=== PATIENT | male | born 1960 | race African-American/Black ===

== ENCOUNTER 2016-07-19 11:36 | Emergency (ER) | payer BC ==
[2016-07-19 11:45] VITALS: BP 125/90; PULSE 82; TEMP 97.5; BMI 25.7
[2016-07-19] MEDS ORDERED: TOBRAMYCIN 0.3% OPHTH SOLN 5 ML BOTTLE OD ONE (12:41)
[2016-07-19] MEDS ORDERED: TOBRAMYCIN 0.3% OPHTH SOLN 5 ML BOTTLE ONE (12:46)
--- NOTE | 2016-07-19 13:02 | PDOC ---
History of Present Illness - General Chief Complaint: Eye Problem Stated Complaint: RT EYE IRRITATION Time Seen by Provider: 07/19/16 12:21 History Source: Patient Exam Limitations: No Limitations - History of Present Illness Initial Comments: 07/19/16 12:56 55 yr male with one week red itchy eye. Pt denies trauma to the eye. Pt has tearing some discharge in the morning. no vision changes, pt has history of colitis. Past History - Past Medical History Allergies/Adverse Reactions: Allergies Allergy/AdvReac Type Severity Reaction Status Date / Time No Known Allergies Allergy Verified 07/19/16 11:41 Home Medications: Ambulatory Orders NK [No Known Home Medication] 05/13/15 GI Disorders: Yes (COLITIS) Suicide Attempt (Hx): No - Psycho/Social/Smoking Cessation Hx Anxiety: No Suicidal Ideation: No Smoking Status: No Smoking History: Never smoked Have you smoked in the past 12 months: No Number of Cigarettes Smoked Daily: 0 Information on smoking cessation initiated: No Hx Alcohol Use: No Drug/Substance Use Hx: No Substance Use Type: None Review of Systems - Review of Systems Able to Perform ROS?: Yes Is the patient limited Armenian proficient: No Constitutional: No: Symptoms Reported HEENTM: Yes: Symptoms Reported, See HPI Respiratory: No: Symptoms reported Cardiac (ROS): No: Symptoms Reported : No: Symptoms Reported Musculoskeletal: No: Symptoms Reported Integumentary: No: Symptoms Reported Neurological: No: Symptoms reported *Physical Exam - Vital Signs Last Vital Signs Temp Pulse Resp BP Pulse Ox 97.5 F L 82 18 125/90 100 07/19/16 11:42 07/19/16 11:42 07/19/16 11:42 07/19/16 11:42 07/19/16 11:42 - Physical Exam General Appearance: Yes: Nourished, Appropriately Dressed HEENT: positive: EOMI, NIMO, Normal ENT Inspection, Other (right eye reddened inner corner, EOMI , scant dischargeclear light [place] color.) Neck: positive: Supple. negative: Trachea midline Respiratory/Chest: positive: Lungs Clear, Normal Breath Sounds Extremity: positive: Normal Capillary Refill Integumentary: positive: Normal Color, Dry, Warm Neurologic: positive: Fully Oriented, Alert, Normal Mood/Affect, Normal Response , Motor Strength 5/5 ED Treatment Course - Medications Given in the ED: ED Medications Discontinued Medications Generic Name Dose Route Start Last Admin Trade Name Tyson PRN Reason Stop Dose Admin Tobramycin Sulfate 1 drop 07/19/16 12:41 07/19/16 12:44 Tobrex Ophthalmic Solution - OD 07/19/16 12:42 1 drop ONCE ONE Administration Medical Decision Making - Medical Decision Making 07/19/16 12:59 cc: right red eye for 8 days no discharge at present time no vision changes EOMI pt has apt tomorrow with the eye doctor for evaluation will place on tobramycin *DC/Admit/Observation/Transfer Diagnosis at time of Disposition: Eye irritation - Discharge Dispostion Disposition: HOME Condition at time of disposition: Good - Patient Instructions Additional Instructions: use the tobramycin drops as directed , 2 drops every 4hrs to right eye follow up with your eye doctor tomorrow for evaluation
== END 2016-07-19 13:18 | disposition home or self-care (01) ==
LOC: JERFT 11:36
DX: H57.8 Other specified disorders of eye and adnexa (principal)
CPT/HCPCS: 99281-25

== ENCOUNTER 2016-09-09 22:16 | Emergency (ER) | payer BC ==
[2016-09-09 22:26] VITALS: BMI 26.6
--- NOTE | 2016-09-09 22:55 | PDOC ---
History of Present Illness - General Chief Complaint: Ear Problem Stated Complaint: EAR PROBLEM Time Seen by Provider: 09/09/16 22:55 History Source: Patient - History of Present Illness Initial Comments: 09/09/16 23:00 56 year old male c/o ear pain left worse than right. patient reports blowing nose felt pain to ears. + nasal congestion Past History - Past Medical History Allergies/Adverse Reactions: Allergies Allergy/AdvReac Type Severity Reaction Status Date / Time No Known Allergies Allergy Verified 09/09/16 22:20 Home Medications: Ambulatory Orders Amoxicillin - [Amoxicillin 875mg Tablet -] 875 mg PO BID #20 tablet 09/09/16 Folic Acid 1 mg PO DAILY 09/09/16 Ibuprofen 600 mg PO QID PRN #20 tablet 09/09/16 Mesalamine [Lialda] 1.2 gm PO DAILY 09/09/16 Pseudoephedrine HCl 30 mg PO DAILY #3 tablet 09/09/16 GI Disorders: Yes (COLITIS) Suicide Attempt (Hx): No Other medical history: SEASONAL ALLERGIES - Immunization History Immunization Up to Date: Yes - Psycho/Social/Smoking Cessation Hx Anxiety: No Suicidal Ideation: No Smoking Status: No Smoking History: Never smoked Have you smoked in the past 12 months: No Number of Cigarettes Smoked Daily: 0 Information on smoking cessation initiated: No Hx Alcohol Use: No Drug/Substance Use Hx: No Substance Use Type: None Review of Systems - Review of Systems Able to Perform ROS?: Yes Is the patient limited Maldivian proficient: No Constitutional: No: Symptoms Reported, See HPI, Chills, Diaphoresis, Fever, Loss of Appetite, Malaise, Night Sweats, Weakness, Weight Stable, Unintentional Wgt. Loss, Unexplained wgt Loss, Other HEENTM: Yes: Ear Pain. No: Symptoms Reported, See HPI, Eye Pain, Blurred Vision , Tearing, Recent change in vision, Double Vision, Cataracts, Ocular Prothesis, Ear Discharge, Nose Pain, Nose Congestion, Tinnitus, Nose Bleeding, Hearing Loss , Throat Pain, Throat Swelling, Mouth Pain, Dental Problems, Difficulty Swallowing, Mouth Swelling, Other *Physical Exam - Vital Signs Last Vital Signs Temp Pulse Resp BP Pulse Ox 98.3 F 87 16 165/107 96 09/09/16 22:21 09/09/16 22:21 09/09/16 22:21 09/09/16 22:21 09/09/16 22:21 - Physical Exam General Appearance: Yes: Appropriately Dressed HEENT: positive: TM Bulging (erythematous l> r) Respiratory/Chest: positive: Lungs Clear, Normal Breath Sounds Cardiovascular: positive: Regular Rhythm, Regular Rate Gastrointestinal/Abdominal: positive: Normal Bowel Sounds, Soft Extremity: positive: Normal Capillary Refill, Normal Inspection, Normal Range of Motion Medical Decision Making - Medical Decision Making otitis media P: amoxicillin sudafed x 3 days ibuprofen for pain *DC/Admit/Observation/Transfer Diagnosis at time of Disposition: Otitis media Qualifiers: Otitis media type: suppurative Laterality: bilateral Chronicity: acute Recurrence: not specified as recurrent Spontaneous tympanic membrane rupture: without spontaneous rupture Qualified Code(s): H66.003 - Acute suppurative otitis media without spontaneous rupture of ear drum, bilateral - Discharge Dispostion Disposition: HOME - Prescriptions Prescriptions: Amoxicillin - [Amoxicillin 875mg Tablet -] 875 mg PO BID #20 tablet Ibuprofen 600 mg PO QID PRN #20 tablet PRN Reason: Pain Pseudoephedrine HCl 30 mg PO DAILY #3 tablet - Referrals Referrals: Demetrio Sweet MD [Primary Care Provider] - - Patient Instructions Printed Discharge Instructions: DI for Otitis Media (Middle Ear Infection)- Child Additional Instructions: take ibuprofen for pain as prescribed. take amoxicillin as prescribed. follow up with your doctor as soon as possible.
[2016-09-09] MEDS ORDERED: IBUPROFEN 600 MG TABLET (FP) PO ONE ×2 (23:10→23:39)
[2016-09-09] MEDS ORDERED: AMOXICILLIN 500 MG CAPSULE (FP) PO ONE (23:10)
[2016-09-09] MEDS ORDERED: AMOXICILLIN 500 MG CAPSULE (FP) ONE (23:39)
--- NOTE | 2016-09-10 00:03 | PDOC ---
*Physical Exam - Vital Signs Last Vital Signs Temp Pulse Resp BP Pulse Ox 98.3 F 87 16 165/107 96 09/09/16 22:21 09/09/16 22:21 09/09/16 22:21 09/09/16 22:21 09/09/16 22:21 ED Treatment Course - Medications Given in the ED: ED Medications Discontinued Medications Generic Name Dose Route Start Last Admin Trade Name Freq PRN Reason Stop Dose Admin Amoxicillin 500 mg 09/09/16 23:10 09/09/16 23:40 Amoxicillin - PO 09/09/16 23:11 500 mg ONCE ONE Administration Ibuprofen 600 mg 09/09/16 23:10 09/09/16 23:40 Motrin - PO 09/09/16 23:11 600 mg ONCE ONE Administration Medical Decision Making - Medical Decision Making 09/10/16 00:03 agree with care from AI Peralta *DC/Admit/Observation/Transfer Diagnosis at time of Disposition: Otitis media Qualifiers: Otitis media type: suppurative Laterality: bilateral Chronicity: acute Recurrence: not specified as recurrent Spontaneous tympanic membrane rupture: without spontaneous rupture Qualified Code(s): H66.003 - Acute suppurative otitis media without spontaneous rupture of ear drum, bilateral - Discharge Dispostion Disposition: HOME - Prescriptions Prescriptions: Amoxicillin - [Amoxicillin 875mg Tablet -] 875 mg PO BID #20 tablet Ibuprofen 600 mg PO QID PRN #20 tablet PRN Reason: Pain Pseudoephedrine HCl 30 mg PO DAILY #3 tablet - Referrals Referrals: Demetrio Sweet MD [Primary Care Provider] - - Patient Instructions Printed Discharge Instructions: DI for Otitis Media (Middle Ear Infection)- Child Additional Instructions: take ibuprofen for pain as prescribed. take amoxicillin as prescribed. follow up with your doctor as soon as possible. - Post Discharge Activity
[2016-09-10 05:00] VITALS: BP 160/97; PULSE 80; TEMP 98.2
== END 2016-09-10 | disposition home or self-care (01) ==
LOC: JER 22:16
DX: H66.003 Acute suppurative otitis media without spontaneous rupture of ear drum, bilateral (principal)
CPT/HCPCS: 99282-25

== ENCOUNTER 2019-01-27 23:55 | Emergency (ER) | payer BC ==
[2019-01-28 00:53] VITALS: BP 146/99; PULSE 70; TEMP 97.9; BMI 24.6
[2019-01-28] MEDS ORDERED: CLINDAMYCIN HCL 300 MG CAPSULE PO ONE (01:25)
--- NOTE | 2019-01-28 01:26 | PDOC ---
History of Present Illness - General Chief Complaint: Injury Stated Complaint: SLICED OFF RT MIDDLE FINGER TIP Time Seen by Provider: 01/28/19 01:17 - History of Present Illness Initial Comments: Kemar Clayton is a 58yo man who presents to the ED with an injury to the right hand. He was using a food safety coordinator at home and stuck his hand inside. His middle fingertip was struck by the food safety coordinator blade. He states that the wound was bleeding heavily immediately after the injury, and he noticed that the fingertip was missing. He wrapped the wound with gauze and wrapped his finger with wire to help with the bleeding. Mr Clayton does not remember when he last had a tetanus shot. Past History - Past Medical History Allergies/Adverse Reactions: Allergies Allergy/AdvReac Type Severity Reaction Status Date / Time No Known Allergies Allergy Verified 09/09/16 22:20 Home Medications: Ambulatory Orders Amoxicillin - [Amoxicillin 875mg Tablet -] 875 mg PO BID #20 tablet 09/09/16 Folic Acid 1 mg PO DAILY 09/09/16 Ibuprofen 600 mg PO QID PRN #20 tablet 09/09/16 Mesalamine [Lialda] 1.2 gm PO DAILY 09/09/16 Pseudoephedrine HCl 30 mg PO DAILY #3 tablet 09/09/16 Clindamycin [Cleocin -] 300 mg PO Q6HPO #28 capsule 01/28/19 COPD: No GI Disorders: Yes (COLITIS) - Immunization History Immunization Up to Date: Yes - Suicide/Smoking/Psychosocial Hx Smoking Status: No Smoking History: Never smoked Have you smoked in the past 12 months: No Number of Cigarettes Smoked Daily: 0 Information on smoking cessation initiated: Yes Hx Alcohol Use: No Drug/Substance Use Hx: No Substance Use Type: None Review of Systems - Review of Systems Comments:: General: No fevers, no chills, no weight or appetite change, no malaise HEENT: No changes in vision, no changes in hearing, no congestion, no sore throat CV: No chest pain, no palpitations, no LE edema Pulm: No SOB, no cough, no wheezing GI: No nausea or vomiting, no change in bowel habits, no melena : No frequency, no urgency, no dysuria Musc: See HPI Skin: No rash, no lesions, no erythema Endo: No excessive thirst, no heat/cold intolerance Heme: No unusual bruising or bleeding, no swollen glands Neuro: No syncope, no numbness/tingling, no focal weakness Vasc: No claudication Psych: No recent change in mood, no SI or HI *Physical Exam - Vital Signs Last Vital Signs Temp Pulse Resp BP Pulse Ox 97.9 F 70 16 146/99 98 01/28/19 00:48 01/28/19 00:48 01/28/19 00:48 01/28/19 00:48 01/28/19 00:48 - Physical Exam Comments: General: Comfortable, no acute distress HEENT: PERRL, EOMI, MMM, voice normal, normal neck ROM, no LAD Cards: RRR, no murmur appreciated Pulm: Comfortable on room air, clear to auscultation bilaterally Abd: Soft, nontender, nondistended Ext: Rt hand w/ injury to middle finger; small piece of distal fingertip missing. Minimal oozing blood, no active bleeding. Finger neurovascularly intact , ROM intact, strength intact. Neuro: A&Ox3, CN grossly intact, normal speech, motor/sensory grossly intact and symmetric Psych: Mood appropriate to situation ED Treatment Course - RADIOLOGY Radiology Studies Ordered: Category Date Time Status HAND- RIGHT [RAD] Stat Radiology 01/28/19 01:25 Ordered Medical Decision Making - Medical Decision Making 01/28/19 01:26 Kemar Clayton is a 58yo man who presents to the ED with an amputation of the right middle fingertip. - Amputation of a small amount of the distal right middle fingertip. Superficial injury, unlikely to be any bony injury - Figner neurovascularly intact - Venous oozing from wound, no active bleeding - Surgicel applied; will dress wound once bleeding stops - Tetanus, clindamycin, percocet 01/28/19 01:55 - Bleeding well controlled with surgicel - Dressing and splint applied - Pt given wound care instructions, follow up information. Will d/c home Seen with Dr Wick. Kae Jimenez PGY2 01/28/19 02:01 *DC/Admit/Observation/Transfer Diagnosis at time of Disposition: Fingertip amputation Qualifiers: Encounter type: initial encounter Qualified Code(s): S68.119A - Complete traumatic metacarpophalangeal amputation of unspecified finger, initial encounter - Discharge Dispostion Disposition: HOME Condition at time of disposition: Stable Decision to Admit order: No - Prescriptions Prescriptions: Clindamycin [Cleocin -] 300 mg PO Q6HPO #28 capsule - Referrals Referrals: Amador Abdalla MD [Staff Physician] - - Patient Instructions Additional Instructions: Discharge Instructions: You were seen in the emergency department for an injury to your fingertip. You were given a tetanus shot and an antibiotic while in the ED. Your finger should heal without intervention. Home Care and Follow Up: - You have been prescribed an antibiotic to prevent infection in your wound. Take this as prescribed until the medication is finished. - You may take acetaminophen (Tylenol) 650-1000mg or ibuprofen (Advil, Motrin) 600mg every 6-8 hours as needed for pain. - Keep your finger wrapped with a clean, dry gauze. If the gauze becomes wet or dirty, replace it - Wear the figner splint provided to help protect your finger from additional injury - Follow up with a hand surgeon within the next 2-3 days. You have been given contact information for Dr Abdalla. - You may see some small amount of bleeding on the bandage or drainage from the wound for a few days. This is normal. - Seek immediate care if you have any worsening of your symptoms, you are bleeding heavily (soaking through bandages), you have redness spreading up the finger, your finger becomes swollen or difficult to move, you have fever to 101F , you have thick or bad smelling drainage from the wound, or you have any other medical emergency. - Post Discharge Activity
[2019-01-28] MEDS ORDERED: DIPHTH,PERTUSS(ACELL),TET 0.5 ML DISP.SYRIN IM ONE ×2 (01:30→01:51)
[2019-01-28] MEDS ORDERED: BACITRACIN 15 GM TUBE TOPICAL OINTMENT TP ONE (01:37)
[2019-01-28] MEDS ORDERED: BACITRACIN 0.9 GM PACKET ONE (01:49)
[2019-01-28] MEDS ORDERED: CLINDAMYCIN HCL 150 MG CAPSULE (FP) ONE (01:49)
[2019-01-28] MEDS ORDERED: BACITRACIN 15 GM TUBE TOPICAL OINTMENT ONE (01:51)
--- NOTE | 2019-01-28 01:51 | PDOC ---
Documentation entered by Ирина Springer SCRIBE, acting as scribe for Roseanne Wick MD. Roseanne Wick MD: This documentation has been prepared by the joséibe, Ирина Springer SCRIBE, under my direction and personally reviewed by me in its entirety. I confirm that the documentation accurately reflects all work, treatment, procedures, and medical decision making performed by me. Attending Attestation - Resident Resident Name: TonyKae - ED Attending Attestation I have performed the following: I have examined & evaluated the patient, The case was reviewed & discussed with the resident, I agree w/resident's findings & plan - HPI HPI: 01/28/19 01:36 The patient is a 58-year-old male with no significant past medical history presents to the emergency department s/p a finger injury. 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 Denies other injuries. - Physicial Exam PE: 01/28/19 01:39 GENERAL: Awake, alert, and fully oriented, in no acute distress NECK: Normal ROM, supple, no lymphadenopathy, JVD, or masses LUNGS: Breath sounds equal, clear to auscultation bilaterally. No wheezes, and no crackles HEART: Regular rate and rhythm, normal S1 and S2, no murmurs, rubs or gallops ABDOMEN: Soft, nontender. EXTREMITIES: Normal range of motion, no edema. NEUROLOGICAL: Awake and alert. Normal speech, normal gait SKIN: +3mm section of the middle finger thats 1x1 cm, currently dripping blood. Full ROM. no other injury. We were able to get hemostasis. Warm, Dry, normal turgor, no rashes or lesions noted. - Medical Decision Making 01/28/19 23:20 Pt's bleed was stopped with surgicel to the fingertip. Pt placed in a fingersplint. ABX given and tdap injection. Pt works for [employer]; we filled out his forms.
== END 2019-01-28 02:02 | disposition home or self-care (01) ==
LOC: JER 23:55
PROC: 3E0234Z Introduction of Serum, Toxoid and Vaccine into Muscle, Percutaneous Approach (ICD-10-PCS; principal; 2019-01-27)
DX: S68.612A Complete traumatic transphalangeal amputation of right middle finger, initial encounter (principal); W29.0XXA Contact with powered kitchen appliance, initial encounter; Y93.G1 Activity, food preparation and clean up; Y92.010 Kitchen of single-family (private) house as the place of occurrence of the external cause; Y99.8 Other external cause status
CPT/HCPCS: 90715; 99281-25

== ENCOUNTER 2019-07-29 12:02 | Emergency (ER) | payer BC ==
[2019-07-29 13:08] VITALS: BP 138/81; PULSE 82; TEMP 97.9; BMI 24.3
--- NOTE | 2019-07-29 13:09 | PDOC ---
Rapid Medical Evaluation Time Seen by Provider: 07/29/19 13:06 Medical Evaluation: Allergies Allergy/AdvReac Type Severity Reaction Status Date / Time No Known Allergies Allergy Verified 09/09/16 22:20 07/29/19 13:07 DACIA I performed a brief in-person evaluation of this patient. Pt is a 58 y/o male with productive cough for the last 2 days. He denies any fevers. No COVID contacts. Pertinent physical exam findings: clear lungs, non-toxic I have ordered the following: cxr Patient to proceed to ER for further evaluation. Discharge Disposition - Diagnosis Cough - Referrals - Patient Instructions - Post Discharge Activity
--- NOTE | 2019-07-29 13:40 | PDOC ---
History of Present Illness - General Chief Complaint: Cold Symptoms Stated Complaint: FEVER/ COUGH Time Seen by Provider: 07/29/19 13:06 History Source: Patient - History of Present Illness Timing/Duration: reports: yesterday Past History - Past Medical History Allergies/Adverse Reactions: Allergies Allergy/AdvReac Type Severity Reaction Status Date / Time No Known Allergies Allergy Verified 07/29/19 13:08 Home Medications: Ambulatory Orders Amoxicillin - [Amoxicillin 875mg Tablet -] 875 mg PO BID #20 tablet 09/09/16 Folic Acid 1 mg PO DAILY 09/09/16 Ibuprofen 600 mg PO QID PRN #20 tablet 09/09/16 Mesalamine [Lialda] 1.2 gm PO DAILY 09/09/16 Pseudoephedrine HCl 30 mg PO DAILY #3 tablet 09/09/16 Clindamycin [Cleocin -] 300 mg PO Q6HPO #28 capsule 01/28/19 COPD: No GI Disorders: Yes (COLITIS) - Immunization History Immunization Up to Date: Yes - Psycho Social/Smoking Cessation Hx Smoking Status: No Smoking History: Never smoked Have you smoked in the past 12 months: No Number of Cigarettes Smoked Daily: 0 Information on smoking cessation initiated: No Hx Alcohol Use: No Drug/Substance Use Hx: No Substance Use Type: None Review of Systems - Review of Systems Constitutional: Yes: Fever, Malaise Respiratory: No: Cough, Shortness of Breath, Wheezing ABD/GI: No: Diarrhea, Nausea, Vomiting *Physical Exam - Vital Signs Last Vital Signs Temp Pulse Resp BP Pulse Ox 97.9 F 82 18 138/81 98 07/29/19 12:54 07/29/19 12:54 07/29/19 12:54 07/29/19 12:54 07/29/19 12:54 - Physical Exam General Appearance: Yes: Appropriately Dressed. No: Apparent Distress HEENT: positive: Normal ENT Inspection, Normal Voice, TMs Normal, Pharynx Normal. negative: Scleral Icterus (R), Scleral Icterus (L) Neck: positive: Supple. negative: Lymphadenopathy (R), Lymphadenopathy (L) Respiratory/Chest: positive: Lungs Clear, Normal Breath Sounds. negative: Respiratory Distress Cardiovascular: positive: Regular Rate, S1, S2 Integumentary: positive: Dry, Warm Neurologic: positive: Fully Oriented, Alert, Normal Mood/Affect Medical Decision Making - Medical Decision Making 07/29/19 13:38 58-year-old male no significant history here with malaise with subjective fever last night. No cough, body aches or shortness of breath see exam M/l viral syndrome Well sushant and stable CXR negative Dc to stay home from work until asymptomatic x24 hours as discussed with patient Discharge - Discharge Information Problems reviewed: Yes Clinical Impression/Diagnosis: Malaise Condition: Good Disposition: HOME - Follow up/Referral - Patient Discharge Instructions Patient Printed Discharge Instructions: DI for Viral Syndrome Additional Instructions: Your CXR was negative You most likely have a mild viral illness which usually runs its course and get better in several days. Rest, drink plenty fluids and take [id number] medication as needed for symptoms At this time you you are not considered high risk for duncan virus and thus the protocol is to have you stay home until you have no symptoms for at least 24 hours If symptoms worsen, return to the ED - Post Discharge Activity Work/Back to School Note: Back to Work
== END 2019-07-29 13:45 | disposition home or self-care (01) ==
LOC: JERFT 12:02
DX: B34.9 Viral infection, unspecified (principal)
CPT/HCPCS: 71046-TC-FY; 99283-25

== ENCOUNTER 2024-04-20 13:21 | Emergency (ER) | payer BC ==
[2024-04-20 13:30] VITALS: RESP 16; TEMP 97.7; BMI 24.8
[2024-04-20] MEDS ORDERED: ONDANSETRON 4 MG/2 ML VIAL ONE (14:31)
[2024-04-20] MEDS ORDERED: MAG HYDROX/AL HYDROX/SIMETH 30 ML UNIT-DOSE CUP ONE (14:31)
[2024-04-20] MEDS: MAG HYDROX/AL HYDROX/SIMETH -MYLANTA- ORAL SUSPENSION PO ONE (14:51)
[2024-04-20] MEDS: LACTATED RINGERS SOLUTION 1000 ML INFUS.BAG IV ONE (14:51)
[2024-04-20] MEDS: ONDANSETRON 4 MG/2 ML VIAL IVPB ONE (14:51)
[2024-04-20 15:00] LABS: BASO % 0.9 % (0-2.0); EOS % 2.3 % (0-4.5); HEMATOCRIT 45.3 % (35.4-49); HEMOGLOBIN 15.3 GM/dL (11.7-16.9); LYMPH % 30.6 % (8-40); MCH 28.6 pg (25.7-33.7); MCHC 33.6 g/dl (32.0-35.9); MEAN CELL VOLUME 85.1 fl (80-96); MEAN PLT VOLUME 7.8 fl (7.5-11.1); MONO % 6.4 % (3.8-10.2); NEUT % 59.8 % (42.8-82.8); PLATELET COUNT 195 10^3/uL (134-434); RBC 5.33 M/mm3 (4.00-5.60); RDW 14.9 % (11.9-15.9); WHITE BLOOD COUNT 4.6 K/mm3 (4.0-10.0)
[2024-04-20 15:15] LABS: POTASSIUM 4.2 mmol/L (3.5-5.1)
[2024-04-20 15:19] LABS: ALBUMIN 4.2 g/dl (3.4-5.0); BLOOD UREA NITROGEN 20.3 mg/dL (7-18); CALCIUM 10.3 mg/dL (8.5-10.1)
[2024-04-20 15:24] LABS: BILIRUBIN,TOTAL 1.4 mg/dL (0.2-1); TOT PROT 7.7 g/dl (6.4-8.2)
[2024-04-20 17:12] VITALS: BP 132/87; PULSE 77
[2024-04-20 20:13] LABS: HIV INTERPRETATION NEGATIVE (NEGATIVE)
== END 2024-04-20 17:41 | disposition home or self-care (01) ==
LOC: JER 13:21
PROC: 3E033GC Introduction of Other Therapeutic Substance into Peripheral Vein, Percutaneous Approach (ICD-10-PCS; principal; 2024-04-20)
PROC: 3E0337Z Introduction of Electrolytic and Water Balance Substance into Peripheral Vein, Percutaneous Approach (ICD-10-PCS; 2024-04-20)
DX: R11.2 Nausea with vomiting, unspecified (principal); Z20.822 Contact with and (suspected) exposure to COVID-19
CPT/HCPCS: 0241U-QW; 36415; 80053; 83605; 83690; 85025; 86803; 87389; 99284-25